=== PATIENT | female | born 1995 | race Hispanic/Latino ===

== ENCOUNTER 2023-11-17 11:53 | Day surgery (SDC) | payer OTHER ==
[~2023-11-17] VITALS: Ht 154.9 cm; Wt 66.3 kg
[2023-11-17] MEDS: LR 1,000 ML IV SCH (12:53)
[2023-11-17] MEDS: DOXYCYCLINE HYCLATE 100MG TABLET PO ONE (12:54)
[2023-11-17 13:18] LABS: HEMATOCRIT 42.1 % (36.0-47.0); HEMOGLOBIN 14.3 g/dl (12.0-15.5); MEAN CORPUSCULAR HEMOGLOBIN 29.9 pg (27.0-33.0); MEAN CORPUSCULAR VOLUME 87.9 fl (80.0-96.0); PLATELET COUNT, AUTOMATED 218 10^3/uL (150-450); RED BLOOD COUNT 4.79 10^6/uL (4.00-5.40); WHITE BLOOD COUNT 7.6 10^3/uL (4.0-10.0)
[2023-11-17] MEDS ORDERED: propofoL 500 MG/50 ML VIAL As Ordered ONE (13:27)
[2023-11-17] MEDS ORDERED: ONDANSETRON 4MG 2ML VIAL As Ordered ONE (13:27)
[2023-11-17] MEDS ORDERED: ACETAMINOPHEN 1000MG 100ML IV BAG As Ordered ONE (13:28)
[2023-11-17] MEDS ORDERED: MIDAZOLAM INJ 2MG/2ML VIAL As Ordered ONE (13:28)
[2023-11-17] MEDS ORDERED: LIDOCAINE 2% 100MG/5ML SDV (FOR ANES.) As Ordered ONE (13:28)
[2023-11-17] MEDS ORDERED: fentaNYL 100 MCG/2 ML INJECTION As Ordered ONE (13:28)
[2023-11-17] MEDS ORDERED: KETOROLAC 60MG 2ML VIAL As Ordered ONE (15:02)
[2023-11-17] MEDS: TRANEXAMIC ACID 100 MG/ML 10ML VIAL As Ordered ONE (15:05)
[2023-11-17] MEDS: SILVER NITRATE APPLICATOR (1 = QTY 10) As Ordered ONE (15:16)
[2023-11-17] MEDS ORDERED: HYDROMORPHONE HCL 0.5 MG/ 0.5 ML SYRINGE IV PRN (15:25)
[2023-11-17] MEDS ORDERED: ONDANSETRON 4MG 2ML VIAL IV PRN (15:25)
[2023-11-17] MEDS ORDERED: LR 1,000 ML IV SCH (15:25)
[2023-11-17] MEDS ORDERED: IBUPROFEN 800 MG TAB PO PRN (15:50)
[2023-11-17] MEDS ORDERED: DOCUSATE SODIUM 100MG CAPSULE PO PRN (15:50)
[2023-11-17] MEDS ORDERED: ONDANSETRON 4MG TAB PO PRN (15:50)
[2023-11-17] MEDS ORDERED: MEPERIDINE 25 MG/ML 1ML VIAL As Ordered ONE (16:07)
[2023-11-17] MEDS: fentaNYL 100 MCG/2 ML INJECTION IV PRN (16:12)
[2023-11-17] MEDS: MEPERIDINE 25 MG/ML 1ML VIAL IV ONE (16:13)
[2023-11-17] MEDS: oxyCODONE 5MG TAB PO PRN (16:22)
[2023-11-17 17:01] VITALS: BP 117/68; TEMP 97.7; O2SAT 100
== END 2023-11-17 17:20 | disposition home or self-care (01) ==
LOC: M SDC 11:53
PROVIDERS: ATTEND Obstetrics & Gynecology
DX: O02.1 Missed abortion (principal); Z91.018 Allergy to other foods
CPT/HCPCS: 36415; 59820; 85027; 86850; 86900; 86901; 88305; J0131; J1100; J1885; J2175; J2250; J2405; J3010; S0191